=== PATIENT | male | born 1975 | race Two or more races ===

== ENCOUNTER 2025-01-31 10:58 | Inpatient (IN) | payer OTHER ==
[~2025-01-31] VITALS: Ht 177.8 cm; Wt 106.2 kg
[2025-01-31] VITALS (9 sets, daily range): BP systolic 121–150; BP diastolic 72–98; PULSE 66–84; RESP 17–20; TEMP 97.1–99.3; O2SAT 96–100
[~2025-01-31 10:58] MED LIST: ASPI-543 PO; ATOR-47 PO; CLOP75TA70 PO; GLIP5TAB21 PO; METF-370 PO; METO25TA36 PO
[2025-01-31] MEDS: IODIXANOL 320MG/ML 100ML BTL IV ONE ×2 (11:53→13:05)
[2025-01-31] MEDS: fentaNYL CITRATE 100 MCG/2 ML VL ONE (11:55)
[2025-01-31] MEDS: ANGIOMAX 250 MG VIAL IV ONE ×2 (11:55→12:30)
[2025-01-31] MEDS: VERAPAMIL 2.5MG/ML INJ 2ML VIAL IV ONE (11:55)
[2025-01-31] MEDS: LIDOCAINE 2%HCL (LOCAL ANESTH.) INJ 20ML MDV ONE (11:55)
[2025-01-31] MEDS: SODIUM CHL 0.9% 0 ML ONE (11:55)
[2025-01-31] MEDS: MIDAZOLAM HCL 2MG/2ML 2ml VIAL (1mg/ml) ONE (11:56)
[2025-01-31] MEDS: SODIUM CHL 0.9% 50 ML ONE (12:30)
[2025-01-31] MEDS: CLOPIDOGREL BISULFATE 75 MG TAB ONE (13:05)
[2025-01-31] MEDS ORDERED: MORPHINE SULFATE INJ 2 MG/ml SYRG IV PRN (13:15)
[2025-01-31] MEDS ORDERED: NITROGLYCERIN 0.4 MG SL TAB SL PRN (13:15)
--- NOTE | 2025-01-31 14:07 | DVHOP2 ---
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 sedation 15-30 mins, PTCA 1 vessel, PCI 1 vessel PREOPERATIVE DIAGNOSES: previous NV with pci to RCA, unrevascularized LAD POSTOP DIAGNOSIS: CAD DESCRIPTION OF PROCEDURE: The patient or appropriate family signed informed consent understanding the risks, benefits and alternatives of the procedure, they wished to proceed. The patient was brought to the cardiac canvas shop laborer in n.p.o. state. The patient was prepped in a sterile fashion. Sedation was used per cardiac cath protocol. I administered 2 mL of 2% lidocaine to the right wrist. With an antegrade front wall puncture. I cannulated the right radial artery and placed a 6-Setswana Glidesheath slender. Next, an intra-arterial spasmolytic was administered. Next, a -5JR4 and 6F xb 3.5 guide and were used for coronary angiogram and LVEDP measurement and pressure pullback. At the completion of procedure, all guides and wires were removed, and there were no immediate complications. FINDINGS: RCA: Moderate vessel off the right sinus of Valsalva, there is no severe flow limiting stenosis. patent stent in RCA. prox. mid and distal RCA are patent. PDA is small with moderate disease . LEFT MAIN: Moderate size left main, it bifurcates into LAD and circumflex. mild plaque CIRCUMFLEX: Moderate caliber vessel coming off the left main . patent Prox CX with mild plaque. OM1 has a bifuracating disease, superior branch has 80% heavily calcific stenosis but small vessel. LAD: LAD is a moderate caliber vessel coming of the left main. prox to mid lad has 50% stenosis. distal LAD has tandem 80% stenosis. INTERVENTION: We decided to proceed with coronary intervention. I started with a 6F __XB 3.5 __ Guide to intubate the _LM _. Angiomax bolus and gtt was started. Following this, I decided to wire using an .014 BMW across the culprit lesion with ease. At this time, we performed balloon angioplasty with a _2. x 15 mm balloon by12___ ATMS over __15__ seconds with _3 number of inflations. Following this, I decided to place a stent using a 2.25 x 38 mm onyx____ stent inflated up to __14 __ ATMS over 15 seconds with two separate inflations. I did a post dilattion using a 2.5 x 20mm NC up to 16 atms Following this, the stent balloon removed and angio performed showing 0% residual stenosis. then i rewired to CX. but the BMW wound not cross so I changed to .014 whispr which did cross. however, a 2.0 balloon wouldnt cross given heavy calcifcation and thus procedure was ended and completed. RODDY pre/post: 3./3 CONCLUSIONS: 1. sp pci to 80% mid to distal LAD stenosis 2. OM1 heavy calcific diseaese, medical management 3. patent RCA stent PLAN: Aggressive risk factor modification and medical management for the patient. DAPT x 1 year uninterrupted BEBETO NEWSOME MD Jan 31, 2025 14:07
[2025-01-31] MEDS ORDERED: LATA0.008 EACHEYE (16:05)
[2025-01-31] MEDS ORDERED: NETA0.02 OP (16:05)
[2025-01-31] MEDS ORDERED: DORZ2SOL18 EACHEYE (16:05)
[2025-01-31] MEDS ORDERED: LOSA-533 PO (16:05)
[2025-01-31] MEDS ORDERED: BRIM0.159 OP (16:05)
[2025-01-31] MEDS ORDERED: FERR325T24 PO (16:05)
[2025-02-01 01:00] VITALS: BP 144/95; PULSE 65; RESP 19; TEMP 98.1; O2SAT 96
[2025-02-01 05:00] VITALS: BP 141/91; PULSE 71; RESP 19; TEMP 98.3; O2SAT 99
[2025-02-01 08:00] VITALS: PULSE 73
[2025-02-01] MEDS: CLOPIDOGREL BISULFATE 75 MG TAB PO SCH (08:37)
[2025-02-01 09:09] VITALS: BP 135/88; PULSE 89; RESP 18; TEMP 98; O2SAT 98
--- NOTE | 2025-02-01 10:25 | ECG ---
[facility] Test Date: 2025-01-31 Test Time: 11:49:50 Pat Name: EBONIE MONTES Department: Room: 0247T B Gender: M Activity Therapist: EVETTE : 1975 Requested By: BEBETO NEWSOME Order Number: [id number] Reading MD: Daryn Sargent Measurements Intervals [place] Rate: 67 P: 17 MI: 180 QRS: 16 QRSD: 94 T: -29 QT: 428 QTc: 452 Interpretive Statements Poor data quality, interpretation may be adversely affected Normal sinus rhythm T wave abnormality, consider inferior ischemia Electronically Signed On 02-02-2025 13:53:38 PDT by Daryn Sargent Please click the below link to view image of tracing.
--- NOTE | 2025-02-01 11:48 | DVHHP2 ---
Review of Systems Allergies: Uncoded Allergies: NONE (Allergy, Unknown, 01/28/25) Medications Current Medications Medications Dose Ordered Sig/Jennifer Route Start Time Stop Time Status Last Admin Dose Admin Nitroglycerin 0.4 mg Q5MINP PRN SL 01/31/25 13:15 Morphine Sulfate 2 mg Q30M PRN IV 01/31/25 13:15 Clopidogrel Bisulfate 75 mg DAILY PO 02/01/25 10:00 02/01/25 08:37 75 MG Aspirin 81 mg DAILY PO 02/01/25 10:00 02/01/25 08:37 81 MG Exam Vital Signs Vital Signs Date Time Temp Pulse Resp B/P (MAP) Pulse Ox O2 Delivery O2 Flow Rate FiO2 02/01/25 09:09 98.0 89 18 135/88 (104) 98 98.0 02/01/25 08:00 Room Air* 0 21 SEPSIS Sepsis Screen Physician Orders Communication Order (02/01/25 08:00) Discharge (02/01/25 08:00) Communication Order (02/01/25 08:02) Vital Signs Date Time Temp Pulse Resp B/P (MAP) Pulse Ox O2 Delivery O2 Flow Rate FiO2 02/01/25 09:09 98.0 89 18 135/88 (104) 98 98.0 02/01/25 08:00 Room Air* 0 21 02/01/25 05:00 98.3 71 19 141/91 (108) 99 98.3 Medications Medications Dose Ordered Sig/Jennifer Route Start Time Stop Time Status Last Admin Dose Admin Aspirin 81 mg DAILY PO 02/01/25 10:00 02/01/25 08:37 81 MG Clopidogrel Bisulfate 75 mg DAILY PO 02/01/25 10:00 02/01/25 08:37 75 MG Assessment/Plan Assessment/Plan see dictated note Plan discussed with: Patient, Spouse Date of Service: Feb 01, 2025 Billing Provider: AURORA BAKER MD Common Visit Codes: [id number] INP/OBS CARE (HIGH) Secondary Visit Codes: [id number] CARE PLAN 30 MINUTES AURORA BAKER MD Feb 01, 2025 11:48
--- NOTE | 2025-02-01 11:49 | DVHDS2 ---
Discharge Summary Date of Admission Jan 31, 2025 at 13:10 Date of Discharge: Feb 01, 2025 Brief Hx & Hospital Course: see dictated note Condition at Discharge: Fair Final Diagnosis/Problems List cad Discharge Disposition: Home Discharge Instruct/Medications Diet: Consistent carbohydrate, Cardiac 2g Na,low cholest Activity: Light activity Follow Up/Referral: fu with pcp/ dr Bird Medications: resume home meds including plavix Scheduled Aspirin (Aspir-Low), 81 MG PO DAILY, (Reported) Atorvastatin Calcium (Atorvastatin Calcium), 1 TAB PO DAILY, (Reported) Brimonidine Tartrate (Brimonidine Tartrate), 1 DROP OP BID, (Reported) Clopidogrel Bisulfate (Clopidogrel), 75 MG PO DAILY, (Reported) Dorzolamide-Timolol (Dorzolamide Hcl/Timolol M), 1 DROP EACHEYE BID, (Reported) Ferrous Sulfate (Ferrous Sulfate), 325 MG PO EOD, (Reported) Glipizide (Glipizide), 1 TAB PO DAILY, (Reported) Latanoprost (Latanoprost), 1 DROP EACHEYE QPM, (Reported) Losartan Potassium (Losartan Potassium), 25 MG PO HS, (Reported) Metoprolol Succinate (Toprol Xl), 1 TAB PO DAILY, (Reported) Netarsudil Dimesylate (Rhopressa), 0.02 % OP DAILY@DINNER, (Reported) Discontinued Medications Metformin Hydrochloride (Metformin Hcl), 1,000 MG PO DAILY, (Reported) Discharge Statement: "Patient was advised to return to the ER or call 911 if any headaches, dizziness, shortness of breath, chest pain, abdominal pain, bleeding, fevers, or worsening of medical condition. Patient was counseled about treatment plan, medications, possible side effects, patientverbalized understanding. All questions were answered to the best of my ability. This discharge took greater then 30 minutes in planning, reviewing documentation, counseling the patient, and discussing with other team members." ASSESSMENT ASSESSMENT Assessment cad Date of Service: Feb 01, 2025 Billing Provider: AURORA BAKER MD Common Visit Codes: [id number]-XFQ/OBS DISCH DAY >30min AURORA BAKER MD Feb 01, 2025 11:49
--- NOTE | 2025-02-01 11:58 | DVHHP ---
ADMIT DATE: 02/01/2025 HISTORY OF PRESENT ILLNESS: The patient is a 49-year-old gentleman who was admitted after he had a recent SD and needed a staged intervention to his coronary arteries. The patient denies any chest pain. No shortness of breath. No nausea or vomiting. No dizziness or syncope. REVIEW OF SYSTEMS: Review of rest of systems is currently negative. PAST MEDICAL HISTORY: Significant for diabetes, hypertension, right eye blindness, hyperlipidemia. MEDICATIONS: Include glipizide, metformin, losartan, aspirin, Plavix. ALLERGIES: No known drug allergies. SOCIAL HISTORY: Denies smoking or alcohol. Lives at home with his . FAMILY HISTORY: Negative. PHYSICAL EXAMINATION: GENERAL: The patient is awake and alert. VITAL SIGNS: Temperature of 98.3, pulse 71 per minute, blood pressure 135/88. SHEENT: Unremarkable. NECK: There is no JVD. No pedal edema. LUNGS: Equal bilaterally. No added sounds. CARDIOVASCULAR SYSTEM: S1, S2 is regular. There are no murmurs. ABDOMEN: Soft. There is no organomegaly. NEUROLOGIC: Nonfocal. MUSCULOSKELETAL: Normal. The right eye is blind. ASSESSMENT AND PLAN: * Coronary artery disease, status post coronary angiography with stenting of mid LAD. * History of coronary artery disease with previous RCA stent. * Diabetes mellitus. * Right eye blindness. * Hyperlipidemia. * Hypertension. * Obesity. ADVANCED CARE PLANNING: The patient is a FULL CODE. Time spent was 18 minutes. MD GRETCHEN Byrne/LUCY TID: [id number] RECEIPT: [id number]
--- NOTE | 2025-02-01 12:02 | DVHDS ---
DATE OF DISCHARGE: 02/01/2025 HISTORY OF PRESENT ILLNESS: The patient is a 49-year-old gentleman who is admitted with history of coronary artery disease and recent SD and has a history of diabetes, hypertension, hyperlipidemia, and right eye blindness. HOSPITAL COURSE: The patient had a coronary angiography by Dr. Bird. The patient had PCI to mid to distal LAD. He had a patent RCA stent and was noted to have an OM1 that was heavily calcified. The patient is now chest pain-free and will be discharged home to resume his home medications including his Plavix and hyperlipidemic drugs. He will follow up with Dr. Bird and his primary care. FINAL DIAGNOSES: * Coronary artery disease status post coronary angiography and PCI. * Diabetes mellitus. * Hypertension. * Right eye blindness. * Hyperlipidemia. * Obesity. Time spent in discharge planning and review of plan with the patient, , and nursing was 38 minutes. MD GRETCHEN Byrne/GEORGIE TID: [id number] RECEIPT: [id number]
== END 2025-02-01 13:45 | disposition home or self-care (01) | DRG 322 ==
LOC: CATH 10:58 → OVERFLOW 13:10 → TELE-EAST 14:24
PROVIDERS: ADMIT Internal Medicine; ATTEND Internal Medicine
PROC: 027034Z Dilation of Coronary Artery, One Artery with Drug-eluting Intraluminal Device, Percutaneous Approach (ICD-10-PCS; principal; 2025-01-31)
PROC: 4A023N7 Measurement of Cardiac Sampling and Pressure, Left Heart, Percutaneous Approach (ICD-10-PCS; 2025-01-31)
PROC: B211YZZ Fluoroscopy of Multiple Coronary Arteries using Other Contrast (ICD-10-PCS; 2025-01-31)
DX: I25.10 Atherosclerotic heart disease of native coronary artery without angina pectoris (principal); H54.61 Unqualified visual loss, right eye, normal vision left eye; E11.9 Type 2 diabetes mellitus without complications; I10 Essential (primary) hypertension; E66.9 Obesity, unspecified; E78.5 Hyperlipidemia, unspecified; I25.2 Old myocardial infarction; Z79.899 Other long term (current) drug therapy; Z68.33 Body mass index [BMI] 33.0-33.9, adult
CPT/HCPCS: 92928; 93005; 93458; 99152; G0378; J2250; Q9967